=== PATIENT | male | born 1955 | race Caucasian/White ===

== ENCOUNTER 2020-08-25 12:43 | Emergency (ER) | payer BC ==
[2020-08-25] MEDS ORDERED: MORPHINE SULFATE 4 MG/1ML SYG ONE (12:51)
[2020-08-25] MEDS ORDERED: ONDANSETRON ODT 4 MG TAB ONE (14:30)
== END 2020-08-25 16:01 | disposition home or self-care (01) ==
LOC: EDH 12:43
DX: S83.92XA Sprain of unspecified site of left knee, initial encounter (principal); I10 Essential (primary) hypertension; W18.39XA Other fall on same level, initial encounter; Y93.89 Activity, other specified; Y92.89 Other specified places as the place of occurrence of the external cause; Y99.8 Other external cause status
CPT/HCPCS: 73562; 96372; 99284; J2270